=== PATIENT | female | born 1945 | race Caucasian/White ===

== ENCOUNTER 2024-11-27 16:44 | Inpatient (IN) ==
--- NOTE | 2024-11-27 17:07 | Emergency Department Note ---
Impression & Plan Stroke-like symptoms, Facial droop ED Provider Note HISTORY OF PRESENT ILLNESS: Patient is an 79-year-old female presenting with slurred speech, facial droop and right eye pain. Patient reports that 3 days ago she woke up from sleep and had some significant tearing in her right eye. Throughout the day she states that she developed some numbness and tingling in the right side of her face. Patient denies any numbness or tingling or weakness in her extremities. She is on Coumadin for history of PE use. She states that she is not having any chest pain. Denies any shortness of breath, nausea or vomiting. Denies a recent falls or head injury. States that she continues to have significant tearing and what feels like swelling of her right periorbital region and states that her right eye is very blurry. reports that today she started having significant slurred speech and he noticed that the right side of her face seem to be drooping. Patient reports she wears 2 L nasal cannula at baseline. ROS: as above PHYSICAL EXAM: Constitutional: Patient appears in no acute distress. HENT: Head: Normocephalic and atraumatic. Eyes: EOMI, PERRL Mouth/Throat: Mucous membranes moist. Neck: Trachea midline. Neck supple. Cardiovascular: RRR, No murmurs, rubs or gallops. Intact distal pulses. Pulmonary/Chest: No respiratory distress. Breath sounds clear and equal bilaterally. No wheezes or rales. No chest wall tenderness to palpation. Abdominal: Abdomen soft, no tenderness, rebound or guarding. Musculoskeletal: No edema, tenderness or deformity noted. Skin: Warm and dry. No rash, erythema, pallor or cyanosis Psychiatric: Appropriate mood and affect for situation. Neurological: Alert and keenly responsive. Patient with notable slurred speech. Right lower facial droop. Patient is able to symmetrically raise her eyebrows. Strength 5 out of 5 in bilateral upper and lower extremities. Sensation intact to light touch to the bilateral upper and lower extremities. P atient reports a decrease sensation to the right lower half of her face. MDM: - Vitals signs showed tachycardia. - History obtained via patient. History as above. - Chronic conditions affecting care: HTN; HLD; pulmonary hypertension; PEs (on Coumadin) - Differential diagnoses include, but are not limited to: CVA; Giron's palsy; intracranial hemorrhage; periorbital cellulitis - Order placed for continuous cardiac monitoring. At this time, monitor showed rate of 84 bpm with normal sinus rhythm, per my interpretation. - External medical records reviewed. - EKG image interpreted by myself showed normal sinus rhythm. Rate 98 bpm. QT 398. No acute ischemic changes. Noted, right bundle branch block. - Patient was not alerted as a stroke alert. She is outside the window TNK, given her last known well was 4 days ago as well as being on Coumadin. CT imaging does not suggest large vessel occlusion, negating the need for transfer for thrombectomy. - Laboratory workup interpreted by myself showed leukocytosis (WBC 13.05); therapeutic INR (2.3); stable electrolytes; elevated creatinine (1.5); hyperglycemia (glucose 216) with normal anion gap; normal BNP; negative lyme; negative Anaplasmosis/Babesia - CXR image reviewed by myself showed pulmonary vascular congestion, per my interpretation. Radiology notes cardiomegaly with pulmonary vascular congestion suggestive of CHF. Also noted to have diffuse hazy opacities in the lungs concerning for pulmonary edema. - CT head wo contrast negative for acute intracranial pathology - CTA head/neck negative for acute abnormality. - On reassessment, patient is still having notable right lower facial droop. She is able to symmetrically raise the eyebrows, making Giron's palsy less likely. Did discuss results with the patient. I did discuss that I am concerned about a stroke and recommended that she be admitted for further workup. - Discussion was had with returned case inspector about patient's case and need for admission - Hospitalist consulted for admission [facility] ASSESSMENT AND PLAN: Diagnosis: Strokelike symptoms; facial droop Plan: Admit Past Med/Surg History Problem List (Updated 11/27/24 @ 20:50 by Leigh Ann Beaulieu MD) Facial droop (Acute) Stroke-like symptoms (Acute) Hypertension (Chronic) Anticoagulant long-term use (Chronic) Hypercholesteremia (Chronic) Acid reflux (Chronic) Obesity (Chronic) Anxiety (Chronic) Osteoarthritis (Chronic) Abnormal EKG Acute exacerbation of CHF (congestive heart failure) Social History Smoking Status: Never smoker Feels Safe at Home: Yes Allergies Allergies Allergy/AdvReac Type Severity Reaction Status Date / Time animal dander Allergy Unknown unknown Unverified 01/08/16 17:45 cabbage Allergy Unknown unknown Unverified 01/08/16 17:45 hazelnut Allergy Unknown unknown Unverified 01/08/16 17:45 orange Allergy Unknown unknown Unverified 01/08/16 17:45 rice Allergy Unknown unknown Unverified 01/08/16 17:45 Dust Allergy Unknown congestion Uncoded 01/08/16 17:45 Home Meds Home Medications Medication Instructions Recorded Confirmed ATENOLOL (TENORMIN) 25 mg PO BID #0 tabs 04/14/12 LOSARTAN POTASSIUM (COZAAR) 50 mg PO DAILY #0 tabs 04/14/12 MONTELUKAST SODIUM (SINGULAIR) 10 mg PO DAILY #0 tabs 04/14/12 OMEPRAZOLE (PRILOSEC) 20 mg PO DAILY #0 caps 04/14/12 Cetirizine (Zyrtec) 10 mg PO DAILY #0 tabs 01/08/16 Fluticasone Propionate (Flovent 2 puff inhalation BID 30 days #1 01/08/16 Hfa) inhaler ROSUVASTATIN CALCIUM (CRESTOR) 1 tab PO DAILY 30 days #30 tabs 01/08/16 Previous Rx's Medication Instructions Recorded Amlodipine Besylate 2.5 mg PO QAM 10 days #5 tabs 01/14/16 Aspirin (Aspirin Low Strength) 81 mg PO QAM 10 days ##10 01/14/16 Colchicine (Colcrys) 0.6 mg PO QAM 10 days #10 tabs 01/14/16 Furosemide 40 mg PO QAM 10 days #10 tabs 01/14/16 Potassium Chloride (Klor-Con M20) 20 meq PO QAM 10 days ##10 01/14/16 Spironolactone 25 mg PO QAM 10 days #10 tabs 01/14/16 Results & Data (ED) Vital Signs Vital Signs - 24 hr 11/27/24 16:49 11/27/24 17:24 11/27/24 17:24 Temperature 36.9 C Temperature Source Oral Pulse Rate 96 H Pulse Rate [Apical] 94 H Pulse Rhythm [Apical] Regular Respiratory Rate 18 18 Respiratory Effort / Characteristics Non-Labored Non-Labored Spontaneous Respiratory Depth Normal Normal Respiratory Pattern Regular Regular Blood Pressure 138/78 Blood Pressure [Left Arm] 155/81 H Blood Pressure Mean 98 Blood Pressure Mean [Left Arm] 105 Blood Pressure Position [Left Arm] Sitting Pulse Oximetry 95 97 Oxygen Delivery Method Nasal Cannula Nasal Cannula Nasal Cannula Oxygen Flow Rate 2 3 3 Sepsis Recent Fever Within 48 Hours No Sepsis New/Unexplained Change in Mental Status N/A Sepsis Action Taken by Nursing No Action Required Pulse Oximetry Post Tiitration 94 11/27/24 17:24 11/27/24 17:33 11/27/24 19:00 Temperature Temperature Source Pulse Rate 93 H Pulse Rate [Apical] 84 Pulse Rhythm [Apical] Respiratory Rate 16 Respiratory Effort / Characteristics Non-Labored Spontaneous Respiratory Depth Respiratory Pattern Blood Pressure Blood Pressure [Left Arm] 160/86 H Blood Pressure Mean Blood Pressure Mean [Left Arm] 110 Blood Pressure Position [Left Arm] Pulse Oximetry 94 95 Oxygen Delivery Method Room Air Room Air Oxygen Flow Rate Sepsis Recent Fever Within 48 Hours Sepsis New/Unexplained Change in Mental Status Sepsis Action Taken by Nursing Pulse Oximetry Post Tiitration Laboratory Data 11/27/24 17:00 11/27/24 17:00 Lab Results 11/27/24 11/27/24 11/27/24 Range/Units 17:00 17:02 17:04 WBC 13.05 H (4.8-10.8) K/ul RBC 4.86 (4.20-5.40) M/uL Hgb 14.9 (12.0-16.0) g/dl POC Hgb 16.0 (12.0-16.0) g/dl Hct 44.5 (37.0-47.0) % POC Hct 47 (37-47) % MCV 91.6 (80.0-100.0) fL MCH 30.7 (25.0-34.0) pg MCHC 33.5 (32.0-36.0) g/dL RDW Std Deviation 51.2 H (36.4-46.3) fL RDW Coeff of Remedios 15.5 H (11.5-14.5) % Plt Count 227 (130-400) K/uL MPV 13.0 H (9.4-12.4) fL PT 22.8 H (9.0-12.0) Seconds INR 2.3 H (0.9-1.1) APTT 38 H (21-31) Seconds PTT Ratio 1.4 POC Sodium 142 (135-144) mmol/L Sodium 140 (136-145) mmol/L POC Potassium 3.8 (3.3-5.0) mmol/L Potassium 3.9 (3.5-5.1) mmol/L POC Chloride 104 (101-112) mmol/L Chloride 104 (98-107) mmol/L Carbon Dioxide 27 (21-32) mmol/L POC Total CO2 26 (24-31) mmol/L Anion Gap 9 (3-11) POC Anion Gap 16.0 (16-25) mmol/L POC BUN 25 H (7-18) mg/dl BUN 24 H (6-23) mg/dl Creatinine 1.50 H (0.6-1.2) mg/dl POC Creatinine 1.6 H (0.6-1.3) mg/dl Est Cr Clr Drug Dosing 33.7 ml/min eGFR 35.01 BUN/Creatinine Ratio 16.0 (10-20) Glucose 216 H (70-99(Fasting)) mg/dl POC Glucose 202 H (70-99) mg/dl POC Glucose (other) 219 H (70-99) mg/dl Calcium 9.0 (8.6-10.3) mg/dl POC Ioniz Calcium Betina 1.09 L (1.12-1.32) mmol/l Magnesium 2.4 (1.7-2.4) mg/dl Total Bilirubin 0.5 (0.2-1.0) mg/dl AST 21 (13-39) U/L ALT 20 (7-52) U/L Alkaline Phosphatase 76 (34-104) U/L B-Natriuretic Peptide 29 (0-100) pg/ml Total Protein 8.0 (6.0-8.3) gm/dl Albumin 4.1 (3.4-5.0) gm/dl Globulin 3.9 (2.5-4.0) gm/dl Albumin/Globulin Ratio 1.1 (0.9-2) Anaplasma Smear See Comment Babesia Smear See Comment Lyme Disease Screen Negative (Negative) Administered Medications Discontinued Medications Ioversol (Optiray 320 125ml) 90 ml IV ONCE ONE Stop: 11/27/24 17:11 Last Admin: 11/27/24 18:08 Dose: Not Given Documented By: ALLAN Ioversol (Optiray 320 125ml) 115 ml IV ONCE ONE Stop: 11/27/24 17:12 Last Admin: 11/27/24 17:11 Dose: 115 ml Documented By: [facility] Imaging Data Radiologist's Impression: Head CTA 11/27/24 16:55 EXAM: CTA head with CLINICAL HISTORY: Facial droop right TECHNIQUE: Contiguous CTA axial images were obtained through the head after the administration of intravenous contrast. Sagittal and coronal reformations are supplied. PRIORS: Head CT 01/08/2016 FINDINGS: The vertebral arteries form the basilar artery at the skull base. [place] is patent. No thrombus or hemodynamically significant stenosis. No aneurysmal dilatation or thomas aneurysm. Moderate calcified atherosclerotic disease involving the bilateral internal carotid arteries at the level of the cavernous sinus which are patent and opacified. Globes are bilaterally symmetric. Optic nerves, artery, extraocular muscles are symmetric. Retrobulbar fat is normal. No enhancing mass in the brain. IMPRESSION: No CTA evidence of an acute vascular abnormality. Electronically signed by Janeen Teague 11-27-2024 7:33 PM Neck CTA 11/27/24 16:55 EXAM: CT angio neck with con CLINICAL HISTORY: Right facial droop, difficulty seeing TECHNIQUE: Contiguous CTA axial images were obtained through the neck with the administration of intravenous contrast. Sagittal and coronal reformations are supplied. MIPS are supplied. COMPARISON: None FINDINGS: A left-sided aortic arch is present. Moderate atherosclerotic disease of the arch with appropriate takeoff of the great vessels and no hemodynamically significant stenosis at their origins. Venous contamination is present. Mild calcified atherosclerotic plaque present in the carotid artery bulbs and proximal internal carotid arteries. No hemodynamically significant stenosis. The common, internal and external carotid arteries are patent. Carotid arteries enter the petrous portion of the skull base normally. No stenosis, thrombus or dissection. The vertebral arteries are bilaterally symmetric and patent throughout their course. No pneumothorax in the upper lungs. No acute osseous abnormality. IMPRESSION: No CT evidence of an acute vascular abnormality in the neck. Electronically signed by Janeen Teague 11-27-2024 7:38 PM Chest X-Ray 11/27/24 16:56 HISTORY: Stroke alert. TECHNIQUE: Portable AP radiograph of the chest. COMPARISON: Chest radiograph dated 01/13/2016. FINDINGS: Cardiomegaly. Pulmonary vascular congestion. Diffuse hazy opacity throughout both lungs. Superimposed left lower lung/retrocardiac opacity. No pneumothorax or effusion. Postsurgical changes of the heart and mediastinum. Degenerative changes of the shoulders and spine. Included upper abdomen is unremarkable. IMPRESSION: * Cardiomegaly with pulmonary vascular congestion suggesting CHF. Diffuse hazy opacity throughout the lungs may represent superimposed pulmonary edema versus chronic interstitial lung disease or atypical pneumonia. * Superimposed left lower lung/retrocardiac opacity favored to represent artifact from underpenetration and atelectasis. Pneumonia is not excluded. Electronically signed by Lorenzo Sewell 11-27-2024 7:[address] 11/27/24 16:56 EXAMINATION: Head CT without CLINICAL HISTORY: Right facial droop, difficulty seeing out of right eye, started this morning. PRIORS: 01/08/2016 TECHNIQUE: Contiguous axial images were obtained through the head without the use of intravenous contrast. Sagittal and coronal reformations are supplied. FINDINGS: Significant motion artifact degrades image quality. Mild parenchymal volume loss noted. Maldonado-white differentiation is preserved. No edema or midline shift. No intra-axial or extra-axial hemorrhage. Ventricles are normal in size and configuration. Brainstem and cerebellum have a normal appearance. Calvarium unremarkable. Paranasal sinuses and mastoid air cells are well-pneumatized. Globes are intact. No retrobulbar abnormality. Moderate osseous demineralization noted. IMPRESSION: No CT evidence of an acute intracranial abnormality. Electronically signed by Janeen Teague 11-27-2024 7:33 PM Discharge Plan Visit Data Chief Complaint: TIA Symptoms Stated Complaint: RT SIDE OF FACE NUMB ED Provider: Leigh Ann Beaulieu Discharge Problem: Stroke-like symptoms, Facial droop Patient Disposition: Admitted As Inpatient Condition: Fair Forms Stand Alone Forms: [facility] Prescriptions Prescriptions: No Action ATENOLOL (TENORMIN) 25 MG tablet 25 mg PO BID Qty: 0 LOSARTAN POTASSIUM (COZAAR) 50 MG tablet 50 mg PO DAILY Qty: 0 MONTELUKAST SODIUM (SINGULAIR) 10 MG tablet 10 mg PO DAILY Qty: 0 OMEPRAZOLE (PRILOSEC) 20 MG capsule 20 mg PO DAILY Qty: 0 Cetirizine (Zyrtec) 10 MG tablet 10 mg PO DAILY Qty: 0 Fluticasone Propionate (Flovent Hfa) 120 PUFFS/13,200 MCG aerosol 2 puff Inhalation BID 30 Days Qty: 1 ROSUVASTATIN CALCIUM (CRESTOR) 20 MG tablet 1 tab PO DAILY 30 Days Qty: 30 Amlodipine Besylate 5 MG tablet 2.5 mg PO QAM 10 Days Qty: 5 0RF Aspirin (Aspirin Low Strength) 81 MG CHEWABLE TAB 81 mg PO QAM 10 Days Qty: 10 0RF Colchicine (Colcrys) 0.6 MG tablet 0.6 mg PO QAM 10 Days Qty: 10 0RF Furosemide 40 MG tablet 40 mg PO QAM 10 Days Qty: 10 0RF Potassium Chloride (Klor-Con M20) 20 MEQ [id number] 20 meq PO QAM 10 Days Qty: 10 0RF Spironolactone 25 MG tablet 25 mg PO QAM 10 Days Qty: 10 0RF Referrals Referrals: Dallas Thompson [Outside Practitioners] -
[2024-11-27] MEDS: OPTIRAY 320 125ml IV ONE ×2 (17:11→18:08)
[2024-11-27 17:15] LABS: iSTAT Creatinine 1.6 mg/dl (0.6-1.3); iSTAT Ionized Calcium 1.09 mmol/l (1.12-1.32); iSTAT Potassium 3.8 mmol/L (3.3-5.0)
[2024-11-27 17:18] LABS: Hematocrit (blood only) 44.5 % (37.0-47.0); Hemoglobin 14.9 g/dl (12.0-16.0); Mean Corpuscular Hemoglobin 30.7 pg (25.0-34.0); Mean Corpuscular Hgb Conc 33.5 g/dL (32.0-36.0); Mean Corpuscular Volume 91.6 fL (80.0-100.0); Platelet Count 227 K/uL (130-400); RDW Coefficient of Variation 15.5 % (11.5-14.5); RDW Standard Deviation 51.2 fL (36.4-46.3); Red Blood Count 4.86 M/uL (4.20-5.40); White Blood Count 13.05 K/ul (4.8-10.8)
[2024-11-27 17:34] LABS: Albumin Globulin Ratio 1.1 (0.9-2); Bilirubin,Total 0.5 mg/dl (0.2-1.0); Creatinine Clr Calc Pharmacy 33.7 ml/min; Globulin 3.9 gm/dl (2.5-4.0); Magnesium 2.4 mg/dl (1.7-2.4); Potassium 3.9 mmol/L (3.5-5.1)
[2024-11-27 17:48] LABS: INR 2.3 (0.9-1.1); Partial Thromboplastin Ratio 1.4; Partial Thromboplastin Time 38 Seconds (21-31); Prothrombin Time 22.8 Seconds (9.0-12.0)
--- NOTE | 2024-11-27 19:33 | CT Scan Report ---
EXAMINATION: Head CT without CLINICAL HISTORY: Right facial droop, difficulty seeing out of right eye, started this morning. PRIORS: 01/08/2016 TECHNIQUE: Contiguous axial images were obtained through the head without the use of intravenous contrast. Sagittal and coronal reformations are supplied. FINDINGS: Significant motion artifact degrades image quality. Mild parenchymal volume loss noted. Maldonado-white differentiation is preserved. No edema or midline shift. No intra-axial or extra-axial hemorrhage. Ventricles are normal in size and configuration. Brainstem and cerebellum have a normal appearance. Calvarium unremarkable. Paranasal sinuses and mastoid air cells are well-pneumatized. Globes are intact. No retrobulbar abnormality. Moderate osseous demineralization noted. IMPRESSION: No CT evidence of an acute intracranial abnormality. Electronically signed by Janeen Teague 11-27-2024 7:33 PM
--- NOTE | 2024-11-27 19:33 | CT Scan Report ---
EXAM: CTA head with CLINICAL HISTORY: Facial droop right TECHNIQUE: Contiguous CTA axial images were obtained through the head after the administration of intravenous contrast. Sagittal and coronal reformations are supplied. PRIORS: Head CT 01/08/2016 FINDINGS: The vertebral arteries form the basilar artery at the skull base. [place] of [place] is patent. No thrombus or hemodynamically significant stenosis. No aneurysmal dilatation or thomas aneurysm. Moderate calcified atherosclerotic disease involving the bilateral internal carotid arteries at the level of the cavernous sinus which are patent and opacified. Globes are bilaterally symmetric. Optic nerves, artery, extraocular muscles are symmetric. Retrobulbar fat is normal. No enhancing mass in the brain. IMPRESSION: No CTA evidence of an acute vascular abnormality. Electronically signed by Janeen Teague 11-27-2024 7:33 PM
--- NOTE | 2024-11-27 19:38 | XRay Report ---
HISTORY: Stroke alert. TECHNIQUE: Portable AP radiograph of the chest. COMPARISON: Chest radiograph dated 01/13/2016. FINDINGS: Cardiomegaly. Pulmonary vascular congestion. Diffuse hazy opacity throughout both lungs. Superimposed left lower lung/retrocardiac opacity. No pneumothorax or effusion. Postsurgical changes of the heart and mediastinum. Degenerative changes of the shoulders and spine. Included upper abdomen is unremarkable. IMPRESSION: * Cardiomegaly with pulmonary vascular congestion suggesting CHF. Diffuse hazy opacity throughout the lungs may represent superimposed pulmonary edema versus chronic interstitial lung disease or atypical pneumonia. * Superimposed left lower lung/retrocardiac opacity favored to represent artifact from underpenetration and atelectasis. Pneumonia is not excluded. Electronically signed by Lorenzo Sewell 11-27-2024 7:37 PM
--- NOTE | 2024-11-27 19:39 | CT Scan Report ---
EXAM: CT angio neck with con CLINICAL HISTORY: Right facial droop, difficulty seeing TECHNIQUE: Contiguous CTA axial images were obtained through the neck with the administration of intravenous contrast. Sagittal and coronal reformations are supplied. MIPS are supplied. COMPARISON: None FINDINGS: A left-sided aortic arch is present. Moderate atherosclerotic disease of the arch with appropriate takeoff of the great vessels and no hemodynamically significant stenosis at their origins. Venous contamination is present. Mild calcified atherosclerotic plaque present in the carotid artery bulbs and proximal internal carotid arteries. No hemodynamically significant stenosis. The common, internal and external carotid arteries are patent. Carotid arteries enter the petrous portion of the skull base normally. No stenosis, thrombus or dissection. The vertebral arteries are bilaterally symmetric and patent throughout their course. No pneumothorax in the upper lungs. No acute osseous abnormality. IMPRESSION: No CT evidence of an acute vascular abnormality in the neck. Electronically signed by Janeen Teague 11-27-2024 7:38 PM
--- NOTE | 2024-11-27 21:06 | History & Physical Report ---
Date of Service November 27, 2024 Assessment & Plan (1) Stroke-like symptoms: Plan: Patient presents with right facial numbness and right facial droop along with right eye symptoms. CTA of the brain and neck showed no significant vascular abnormalities CTA of the brain shows no acute abnormalities Continue warfarin and aspirin for now Consult neurology Will obtain MRI of the brain Will check echocardiogram Consult PT and OT and speech therapy Consult neurology (2) Hypertension: Plan: Will continue her home medications Monitor her BP Allow for permissive hypertension if stroke is confirmed (3) Pulmonary embolism: Plan: Continue warfarin Consult pharmacy for dosing management (4) Hypercholesteremia: Plan: Continue rosuvastatin (5) Acid reflux: Plan: Continue PPI (6) Pulmonary arterial hypertension: Plan: Continue Adempas (7) Diabetes 1.5, managed as type 2: Plan: Heart healthy carb counting diet Will hold Ozempic and glipizide for now Continue Jardiance Sliding scale insulin (8) Chronic respiratory failure: Plan: Continue O2 continuous at 2 L/min Plan Discussed CODE STATUS with the patient and her . She is a full code Continue warfarin A total of 87 minutes spent in the care, care plan and care management for this patient History of Present Illness Chief Complaint: Stroke symptoms Primary Care Provider: Félix Villeda MD Gabbi Castaneda is an 79-year-old female with a previous medical history significant for type 2 diabetes mellitus prior pulmonary embolism, paroxysmal atrial fibrillation on chronic warfarin anticoagulation, GERD, adjustment diso rder with depressed mood, hypertension, restrictive lung disease, pulmonary hypertension, hyperlipidemia and stage III CKD. She presents to the ED this evening with her spouse with slurred speech, facial droop and right eye pain. She reports that 3 days ago she woke up from sleep and had some significant tearing in her right eye. Throughout the day she states that she developed some numbness and tingling in the right side of her face. She denies any numbness or tingling or weakness in her extremities. She denies chest pain, shortness of breath, fever, chills or headache currently. She denies any recent falls or head injury. She states that she continues to have significant tearing and what feels like swelling of her right periorbital region and states that her right eye is very blurry. Her spouse reports that today she started having significant slurred speech and he noticed that the right side of her face seemed to be drooping. Patient wears 2 L nasal cannula at baseline for restrictive lung disease and pulmonary hypertension. In the ED CTA of the neck and head are negative for significant vascular occlusion. CT scan of the head shows no acute abnormalities. Patient is outside the window for TNK. Gabbi states she felt as though she had a sinus infection several weeks ago. She did finish her course of amoxicillin. She has no sinus pressure or purulent nasal discharge. Allergies Allergy/AdvReac Type Severity Reaction Status Date / Time animal dander Allergy Unknown unknown Unverified 01/08/16 17:45 cabbage Allergy Unknown unknown Unverified 01/08/16 17:45 hazelnut Allergy Unknown unknown Unverified 01/08/16 17:45 orange Allergy Unknown unknown Unverified 01/08/16 17:45 rice Allergy Unknown unknown Unverified 01/08/16 17:45 Dust Allergy Unknown congestion Uncoded 01/08/16 17:45 Home Medications Medication Instructions Recorded Confirmed Type ATENOLOL (TENORMIN) 25 mg PO BID #0 tabs 04/14/12 History LOSARTAN POTASSIUM (COZAAR) 50 mg PO DAILY #0 tabs 04/14/12 History MONTELUKAST SODIUM (SINGULAIR) 10 mg PO DAILY #0 tabs 04/14/12 History OMEPRAZOLE (PRILOSEC) 20 mg PO DAILY #0 caps 04/14/12 History Cetirizine (Zyrtec) 10 mg PO DAILY #0 tabs 01/08/16 History Fluticasone Propionate (Flovent 2 puff inhalation BID 30 days #1 01/08/16 History Hfa) inhaler ROSUVASTATIN CALCIUM (CRESTOR) 1 tab PO DAILY 30 days #30 tabs 01/08/16 History Amlodipine Besylate 2.5 mg PO QAM 10 days #5 tabs 01/14/16 Rx Aspirin (Aspirin Low Strength) 81 mg PO QAM 10 days ##10 01/14/16 Rx Colchicine (Colcrys) 0.6 mg PO QAM 10 days #10 tabs 01/14/16 Rx Furosemide 40 mg PO QAM 10 days #10 tabs 01/14/16 Rx Potassium Chloride (Klor-Con M20) 20 meq PO QAM 10 days ##10 01/14/16 Rx Spironolactone 25 mg PO QAM 10 days #10 tabs 01/14/16 Rx Past Med/Surg History Problem List (Updated 11/27/24 @ 21:49 by Lorenzo Molina DO) Chronic respiratory failure Diabetes 1.5, managed as type 2 Pulmonary arterial hypertension Facial droop (Acute) Stroke-like symptoms (Acute) Hypertension (Chronic) Anticoagulant long-term use (Chronic) Hypercholesteremia (Chronic) Acid reflux (Chronic) Obesity (Chronic) Anxiety (Chronic) Osteoarthritis (Chronic) Abnormal EKG Acute exacerbation of CHF (congestive heart failure) Social History Smoking Status: Never smoker Feels Safe at Home: Yes Review of Systems Review of Systems: Constitutional- no fever; no weight loss even on the Ozempic yet Eyes-as above. She states both eyes are blurry but that is not really new ENT-occasional sinus drainage; no pharyngitis Pulmonary-she did have a cough several weeks ago but no cough currently, no wheezing, no resting shortness of breath. She has chronic dyspnea on exertion and is on 2 L of oxygen via nasal cannula continuous Cardiac- no chest pain, no palpitations, no orthopnea, no current edema GI- no nausea, no vomiting, no diarrhea, no melena, no hematochezia - no dysuria, no hematuria Musculoskeletal- no arthralgias, no myalgias, she does have chronic low back pain and is mainly wheelchair bound most of the time Hematologic- no unusual bruising, no unusual bleeding on the warfarin Lymphatics- no adenopathy Neuro- no headaches, she has a right facial droop, no paresthesias or weakness in the right upper extremity or right lower extremity. She did have some facial numbness on the right but that seems to have resolved. Psych-she has a history of anxiety with depression that is currently controlled Physical Exam Physical Exam: General- adult elderly female seen at bedside, her spouse is present, she is deemed a reliable historian Head- atraumatic Eyes- PERRL, EOMI, anicteric ENT- oropharynx clear Neck- supple, no JVD, no adenopathy, no thyromegaly; carotids +2/2, no bruits appreciated Lungs- clear to auscultation and percussion Heart- regular rhythm; no gallop, no rub appreciated Abdomen- normal bowel sounds, soft, nontender, no masses or hepatosplenomegaly Extremities- no pretibial edema, no calf tenderness; peripheral pulses intact Neuro- alert, oriented x 3; PERRL, EOMI; she does have a subtle right facial droop; she does move her eyebrows symmetrically, no dysarthria; motor 5/5 bilaterally; no cogwheel rigidity; patellar DTRs +2/2; toes downgoing bilaterally; finger to nose intact bilaterally Skin- warm & dry Results & Data Results & Data Vital Signs (Past 12 Hours) Vital Signs Temp Pulse Pulse Resp BP BP Pulse Ox 11/27/24 19:00 84 16 160/86 H 95 11/27/24 17:33 93 H 11/27/24 17:24 94 11/27/24 17:24 11/27/24 17:24 94 H 18 155/81 H 97 11/27/24 16:49 36.9 C 96 H 18 138/78 95 O2 Del Method O2 Flow Rate 11/27/24 19:00 Room Air 11/27/24 17:33 11/27/24 17:24 Room Air 11/27/24 17:24 Nasal Cannula 3 11/27/24 17:24 Nasal Cannula 3 11/27/24 16:49 Nasal Cannula 2 Diagnostic Findings Laboratory Results WBC 13.05 K/ul (4.8-10.8) H 11/27/24 17:00 RBC 4.86 M/uL (4.20-5.40) 11/27/24 17:00 Hgb 14.9 g/dl (12.0-16.0) 11/27/24 17:00 POC Hgb 16.0 g/dl (12.0-16.0) 11/27/24 17:04 Hct 44.5 % (37.0-47.0) 11/27/24 17:00 POC Hct 47 % (37-47) 11/27/24 17:04 MCV 91.6 fL (80.0-100.0) 11/27/24 17:00 MCH 30.7 pg (25.0-34.0) 11/27/24 17:00 MCHC 33.5 g/dL (32.0-36.0) 11/27/24 17:00 RDW Std Deviation 51.2 fL (36.4-46.3) H 11/27/24 17:00 RDW Coeff of Remedios 15.5 % (11.5-14.5) H 11/27/24 17:00 Plt Count 227 K/uL (130-400) 11/27/24 17:00 MPV 13.0 fL (9.4-12.4) H 11/27/24 17:00 PT 22.8 Seconds (9.0-12.0) H 11/27/24 17:00 INR 2.3 (0.9-1.1) H 11/27/24 17:00 APTT 38 Seconds (21-31) H 11/27/24 17:00 PTT Ratio 1.4 11/27/24 17:00 POC Sodium 142 mmol/L (135-144) 11/27/24 17:04 Sodium 140 mmol/L (136-145) 11/27/24 17:00 POC Potassium 3.8 mmol/L (3.3-5.0) 11/27/24 17:04 Potassium 3.9 mmol/L (3.5-5.1) 11/27/24 17:00 POC Chloride 104 mmol/L (101-112) 11/27/24 17:04 Chloride 104 mmol/L (98-107) 11/27/24 17:00 Carbon Dioxide 27 mmol/L (21-32) 11/27/24 17:00 POC Total CO2 26 mmol/L (24-31) 11/27/24 17:04 Anion Gap 9 (3-11) 11/27/24 17:00 POC Anion Gap 16.0 mmol/L (16-25) 11/27/24 17:04 POC BUN 25 mg/dl (7-18) H 11/27/24 17:04 BUN 24 mg/dl (6-23) H 11/27/24 17:00 Creatinine 1.50 mg/dl (0.6-1.2) H 11/27/24 17:00 POC Creatinine 1.6 mg/dl (0.6-1.3) H 11/27/24 17:04 Est Cr Clr Drug Dosing 33.7 ml/min 11/27/24 17:00 eGFR 35.01 11/27/24 17:00 BUN/Creatinine Ratio 16.0 (10-20) 11/27/24 17:00 Glucose 216 mg/dl (70-99(Fasting)) H 11/27/24 17:00 POC Glucose 202 mg/dl (70-99) H 11/27/24 17:02 POC Glucose (other) 219 mg/dl (70-99) H 11/27/24 17:04 Calcium 9.0 mg/dl (8.6-10.3) 11/27/24 17:00 POC Ioniz Calcium Betina 1.09 mmol/l (1.12-1.32) L 11/27/24 17:04 Magnesium 2.4 mg/dl (1.7-2.4) 11/27/24 17:00 Total Bilirubin 0.5 mg/dl (0.2-1.0) 11/27/24 17:00 AST 21 U/L (13-39) 11/27/24 17:00 ALT 20 U/L (7-52) 11/27/24 17:00 Alkaline Phosphatase 76 U/L (34-104) 11/27/24 17:00 B-Natriuretic Peptide 29 pg/ml (0-100) 11/27/24 17:00 Total Protein 8.0 gm/dl (6.0-8.3) 11/27/24 17:00 Albumin 4.1 gm/dl (3.4-5.0) 11/27/24 17:00 Globulin 3.9 gm/dl (2.5-4.0) 11/27/24 17:00 Albumin/Globulin Ratio 1.1 (0.9-2) 11/27/24 17:00 Anaplasma Smear See Comment 11/27/24 17:00 Babesia Smear See Comment 11/27/24 17:00 Lyme Disease Screen Negative (Negative) 11/27/24 17:00 Impressions Head CTA 11/27/24 16:55 EXAM: CTA head with CLINICAL HISTORY: Facial droop right TECHNIQUE: Contiguous CTA axial images were obtained through the head after the administration of intravenous contrast. Sagittal and coronal reformations are supplied. PRIORS: Head CT 01/08/2016 FINDINGS: The vertebral arteries form the basilar artery at the skull base. [place] of [place] is patent. No thrombus or hemodynamically significant stenosis. No aneurysmal dilatation or thomas aneurysm. Moderate calcified atherosclerotic disease involving the bilateral internal carotid arteries at the level of the cavernous sinus which are patent and opacified. Globes are bilaterally symmetric. Optic nerves, artery, extraocular muscles are symmetric. Retrobulbar fat is normal. No enhancing mass in the brain. IMPRESSION: No CTA evidence of an acute vascular abnormality. Electronically signed by Janeen Teague 11-27-2024 7:33 PM Neck CTA 11/27/24 16:55 EXAM: CT angio neck with con CLINICAL HISTORY: Right facial droop, difficulty seeing TECHNIQUE: Contiguous CTA axial images were obtained through the neck with the administration of intravenous contrast. Sagittal and coronal reformations are supplied. MIPS are supplied. COMPARISON: None FINDINGS: A left-sided aortic arch is present. Moderate atherosclerotic disease of the arch with appropriate takeoff of the great vessels and no hemodynamically significant stenosis at their origins. Venous contamination is present. Mild calcified atherosclerotic plaque present in the carotid artery bulbs and proximal internal carotid arteries. No hemodynamically significant stenosis. The common, internal and external carotid arteries are patent. Carotid arteries enter the petrous portion of the skull base normally. No stenosis, thrombus or dissection. The vertebral arteries are bilaterally symmetric and patent throughout their course. No pneumothorax in the upper lungs. No acute osseous abnormality. IMPRESSION: No CT evidence of an acute vascular abnormality in the neck. Electronically signed by Janeen Teague 11-27-2024 7:38 PM Chest X-Ray 11/27/24 16:56 HISTORY: Stroke alert. TECHNIQUE: Portable AP radiograph of the chest. COMPARISON: Chest radiograph dated 01/13/2016. FINDINGS: Cardiomegaly. Pulmonary vascular congestion. Diffuse hazy opacity throughout both lungs. Superimposed left lower lung/retrocardiac opacity. No pneumothorax or effusion. Postsurgical changes of the heart and mediastinum. Degenerative changes of the shoulders and spine. Included upper abdomen is unremarkable. IMPRESSION: * Cardiomegaly with pulmonary vascular congestion suggesting CHF. Diffuse hazy opacity throughout the lungs may represent superimposed pulmonary edema versus chronic interstitial lung disease or atypical pneumonia. * Superimposed left lower lung/retrocardiac opacity favored to represent artifact from underpenetration and atelectasis. Pneumonia is not excluded. Electronically signed by Lorenzo Sewell 11-27-2024 7:[address] 11/27/24 16:56 EXAMINATION: Head CT without CLINICAL HISTORY: Right facial droop, difficulty seeing out of right eye, started this morning. PRIORS: 01/08/2016 TECHNIQUE: Contiguous axial images were obtained through the head without the use of intravenous contrast. Sagittal and coronal reformations are supplied. FINDINGS: Significant motion artifact degrades image quality. Mild parenchymal volume loss noted. Maldonado-white differentiation is preserved. No edema or midline shift. No intra-axial or extra-axial hemorrhage. Ventricles are normal in size and configuration. Brainstem and cerebellum have a normal appearance. Calvarium unremarkable. Paranasal sinuses and mastoid air cells are well-pneumatized. Globes are intact. No retrobulbar abnormality. Moderate osseous demineralization noted. IMPRESSION: No CT evidence of an acute intracranial abnormality. Electronically signed by Janeen Teague 11-27-2024 7:33 PM ECG Additional Comments: EKG is reviewed and shows a sinus rhythm and a right bundle branch block. This is stated as new but this is listed on her [facility] PCP medical records. Code Status & VTE Plan VTE Prophylaxis Plan Reason for no VTE drug order: Contraindicated
[2024-11-27] MEDS: LORazepam 2 MG/1 ML VIAL IV STA (23:57)
[2024-11-27] MEDS ORDERED: LORazepam 0.5 MG TAB PO PRN (23:58)
[2024-11-28] MEDS ORDERED: POLYETHYLENE (MIRALAX) 17 GM PACK PO PRN (01:16)
[2024-11-28] MEDS ORDERED: GLUCOSE 10 TAB/TUBE PO PRN (01:16)
[2024-11-28] MEDS ORDERED: MAGNESIUM HYDROXIDE SUSP 30 ML UDC PO PRN (01:16)
[2024-11-28] MEDS ORDERED: ACETAMINOPHEN 325 MG TAB PO PRN (01:16)
[2024-11-28] MEDS ORDERED: CARBOHYDRATES FOR HYPOGLYCEMIA PO PRN (01:16)
[2024-11-28] MEDS ORDERED: GLUCAGON FOR INJ 1 MG VIAL SQ PRN (01:16)
[2024-11-28] MEDS ORDERED: MELATONIN 3 MG TAB PO PRN (01:16)
[2024-11-28] MEDS ORDERED: ONDANSETRON INJ 2 MG/ML 2 ML VIAL IV PRN (01:16)
[2024-11-28] MEDS ORDERED: DEXTROSE 50% 50 ML SYRINGE IV PRN (01:16)
[2024-11-28] MEDS ORDERED: GLUCOSE 40% GEL 15 GM TUBE PO PRN (01:16)
[2024-11-28] MEDS ORDERED: PHARMACY GLYCEMIC MGMT CONSULT PRN (01:16)
--- NOTE | 2024-11-28 01:26 | Magnetic Resonance Report ---
EXAM: MR brain wo con CLINICAL HISTORY: stroke like symptoms TECHNIQUE: Multisequential and multiplanar images of the brain were submitted for review without contrast. COMPARISON: None. FINDINGS: Generalized parenchymal atrophy is appreciated. Scattered foci of increased T2/FLAIR signal abnormality are identified within the bilateral periventricular and subcortical white matter, and are most commonly associated with chronic small vessel ischemic disease. No focal parenchymal lesions are seen. No intracranial hemorrhage, mass effect, midline shift, extra-axial collection, or hydrocephalus is identified. Ventricles, sulci, and basal cisterns are symmetric and normal in size and configuration. Diffusion-weighted sequences show no evidence of acute ischemic infarction. Midline structures including the pituitary gland, corpus callosum, pineal region, and brainstem are unremarkable. The craniovertebral junction is within normal limits. No calvarial abnormalities are identified. The paranasal sinuses and mastoid air cells are clear. Orbital structures are unremarkable. Appropriate flow voids are present in the visualized intracranial vessels. IMPRESSION: 1. No acute ischemia, space occupying mass, or other acute intracranial pathology is demonstrated. 2. Chronic small vessel ischemic disease. 3. Diffuse cerebral atrophy. Electronically signed by Phill Earl 11-28-2024 01:26 AM
[2024-11-28 02:12] LABS: Chol HDL Ratio 2.8 (0-5)
[2024-11-28 02:25] LABS: INR 2.3 (0.9-1.1); Prothrombin Time 22.8 Seconds (9.0-12.0)
[2024-11-28 06:19] LABS: Hematocrit (blood only) 42.4 % (37.0-47.0); Hemoglobin 13.5 g/dl (12.0-16.0); Mean Corpuscular Hemoglobin 29.7 pg (25.0-34.0); Mean Corpuscular Hgb Conc 31.8 g/dL (32.0-36.0); Mean Corpuscular Volume 93.4 fL (80.0-100.0); Mean Platelet Volume 13.5 fL (9.4-12.4); Platelet Count 204 K/uL (130-400); RDW Coefficient of Variation 15.6 % (11.5-14.5); RDW Standard Deviation 53.4 fL (36.4-46.3); Red Blood Count 4.54 M/uL (4.20-5.40); White Blood Count 9.67 K/ul (4.8-10.8)
[2024-11-28 06:32] LABS: BUN Creatinine Ratio 16.9 (10-20); Calcium 8.6 mg/dl (8.6-10.3); Creatinine Clr Calc Pharmacy 38.5 ml/min; Magnesium 2.5 mg/dl (1.7-2.4)
[2024-11-28 06:43] LABS: INR 2.2 (0.9-1.1); Prothrombin Time 22.6 Seconds (9.0-12.0)
[2024-11-28] MEDS: INSULIN ASPART PER UNIT CHARGE SC SCH (08:26)
[2024-11-28] MEDS: SPIRONOLACTONE 25 MG TAB PO SCH (08:27)
[2024-11-28] MEDS: ROSUVASTATIN CALCIUM 20 MG TAB PO SCH (08:27)
[2024-11-28] MEDS: allopurinoL 100 MG TAB PO SCH (08:27)
[2024-11-28] MEDS: BUMETANIDE 1 MG TAB PO SCH (08:28)
[2024-11-28] MEDS: PANTOprazole 40 MG TAB PO SCH (08:28)
[2024-11-28] MEDS: ESCITALOPRAM OXALATE 10 MG TAB PO SCH (08:28)
[2024-11-28] MEDS: ASPIRIN 81 MG ECTAB PO SCH (08:28)
--- NOTE | 2024-11-28 10:37 | Neurology Consultation ---
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: *House Brackmann III Recommend continued eye drops/lubrication QID while awake Recommend patch to cover protect right eye QHS and when engaging in activity or going outside Consider short dose of steroids to contribute to reduction in inflammation suspected following URI symptoms Consider further tx of recent/ongoing URI symptoms Agree with continued home medications Continue to monitor neurological assessments while inpatient Monitor telemetry while inpatient Monitor/control blood pressure/blood glucose while inpatient Recommend PT/OT/SLT eval & tx if indicated VTE prophylaxis if not fully anticoagulated (2) Stroke-like symptoms: [place] Palsy Telehealth Consultation Telehealth Information Telehealth Information: I performed this visit using a real-time telehealth connection between my location and the patients location (). After connecting through interactive tele-video, patient was identified by name and date of and/or wristband check.Patient (or authorized healthcare quality assurance representative) was informed that this was a telemedicine visit and it was being conducted confidentially over secure lines. My office door was closed and no one else was present in the room with me.Patient (or authorized healthcare quality assurance representative) provided consent to proceed with the visit, expressed an understanding of privacy and security of the telemedicine visit, and gave permission to have a hospital quality assurance representative in the room in order to assist with the visit and to conduct portions of the visit, as needed. I informed the patient (or authorized healthcare quality assurance representative) that I reviewed their record and presented the opportunity for them to ask any questions regarding the visit today. The patient agreed to participate. History of Present Illness Reason for Consultation: Stroke like symptoms Requesting Physician: Dr. Sanchez Attending Physician: Darek Sanchez, History of Present Illness 79yo female with hx of AFIB/PE on warfarin, DM, HTN, hyperlipidemia, CKD presented with dysarthria right facial asymmetry and right eye tearing. Reportedly awoke from sleep with new symptoms a few days prior to presentation. She has undergone stroke imaging including CT brain without contrast, personally reviewed, revealing no overt evidence of hemorrhage. CT angiographic studies of head and neck, also personally reviewed today, reveal no overt evidence of large vessel occlusion or significant/flow limiting stenosis. MRI brain depicting no evidence of acute ischemic stroke or acute intracranial pathology. I have performed televideo consultation. She is alert & oriented; able to answer all questions appropriately, name objects on televideo monitor, repeat phrases and perform complex/embedded commands without deficit. There is noted right facial asymmetry consistent with right CN VII LMN Palsy; House Brackmann III. Neurologi adela exam is non lateralizing/nonfocal in terms of motor strength and coordination. She reports recent URI and has taken antibx for 10 days. She reports chronic dry eyes. We have discussed recommendation for continued frequent eye drops QID while awake and eye lubricant to right eye QHS as well as patching protecting right eye QHS and when going outside or engaging in activity. Allergies Allergy/AdvReac Type Severity Reaction Status Date / Time animal dander Allergy Unknown unknown Unverified 01/08/16 17:45 cabbage Allergy Unknown unknown Unverified 01/08/16 17:45 hazelnut Allergy Unknown unknown Unverified 01/08/16 17:45 orange Allergy Unknown unknown Unverified 01/08/16 17:45 rice Allergy Unknown unknown Unverified 01/08/16 17:45 Home Medications Medication Instructions Recorded Confirmed Type omeprazole 20 mg capsule,delayed 20 mg PO UD #0 caps 04/14/12 11/28/24 History release cetirizine 10 mg tablet 10 mg PO UD #0 tabs 01/08/16 11/28/24 History Aspirin (Aspirin Low Strength) 81 mg PO QAM 10 days ##10 01/14/16 11/28/24 Rx allopurinol 100 mg tablet 200 mg PO DAILY 11/28/24 11/28/24 History bumetanide 1 mg tablet 1 - 2 mg PO UD 11/28/24 11/28/24 History empagliflozin 25 mg tablet 25 mg PO DAILY 11/28/24 11/28/24 History (Jardiance) glipizide 10 mg tablet 10 mg PO BID 11/28/24 11/28/24 History riociguat 2.5 mg tablet (Adempas) 2.5 mg PO DAILY 11/28/24 11/28/24 History rosuvastatin 20 mg tablet 20 mg PO DAILY 11/28/24 11/28/24 History semaglutide 0.25 mg or 0.5 mg (2 0.25 - 0.5 mg subcut DIRECTED 11/28/24 11/28/24 History mg/3 mL) subcutaneous pen injector (Ozempic) spironolactone 25 mg tablet 25 mg PO DAILY 11/28/24 11/28/24 History warfarin 1 mg tablet 1 - 2 mg PO UD 11/28/24 11/28/24 History Patient History Social History Smoking Status: Never smoker Hx Alcohol Use: No Hx Substance Use: No Preferred Language: Indonesian Communication Ability: Effective Online Media Director Required: No Beliefs That Will Affect Care: None Current Living Situation: Spouse Feels Safe at Home: Yes Safety Concerns: Feels Safe At This Time Assistive Devices: Cane, Denture - Upper, Denture - Lower, Hearing Aid - Bilateral and Oxygen - Continuous Physical Exam Neurological Examination: Mental Status: Awake and alert. Oriented to person, place, and time. Fluency naming repetition and comprehension appear grossly intact. Affect remains appropriate. CN testing: I: Deferred II:Reports no changes in visual acuity III/IV/: No evidence of gaze preference, hippus, nystagmus or roving eye movements V: Facial sensation reportedly grossly intact to light touch bilaterally VII: Appreciate right CN VII LMN palsy *House Brackmann III VIII: Hearing appears grossly intact to loud voice bilaterally IX/X: Palate-unable to be accurately assessed XI: Shoulder shrug appears symmetric/ grossly intact bilaterally XII: Tongue protrudes midline without evidence of biting Motor exam: Strength appears grossly intact/symmetric in all extremities Sensory: Sensation is reportedly grossly intact throughout Coordination: No apparent evidence of dysmetria or dysdiadochokinesia Reflexes: Deferred Gait: Deferred Results & Data Vital Signs (Past 12 Hours) Vital Signs Temp Pulse Pulse Resp BP BP Pulse Ox 11/28/24 08:30 11/28/24 07:25 36.3 C L 81 17 119/74 98 11/28/24 07:00 80 11/28/24 06:17 83 11/28/24 03:28 36.4 C L 98 H 20 146/87 H 96 11/28/24 01:28 36.5 C 85 20 122/75 97 11/28/24 01:00 11/27/24 23:56 82 18 151/83 H 94 11/27/24 23:22 36.6 C 81 18 154/82 H 93 O2 Del Method O2 Flow Rate 11/28/24 08:30 Nasal Cannula 3 11/28/24 07:25 Nasal Cannula 4 11/28/24 07:00 11/28/24 06:17 11/28/24 03:28 Nasal Cannula 4.0 11/28/24 01:28 Nasal Cannula 3.0 11/28/24 01:00 Nasal Cannula 3 11/27/24 23:56 Nasal Cannula 3 11/27/24 23:22 Nasal Cannula 3 Laboratory Results Abnormal lab results 11/27/24 11/27/24 11/27/24 Range/Units 17:00 17:02 17:04 WBC 13.05 H (4.8-10.8) K/ul MCHC (32.0-36.0) g/dL RDW Std Deviation 51.2 H (36.4-46.3) fL RDW Coeff of Remedios 15.5 H (11.5-14.5) % MPV 13.0 H (9.4-12.4) fL PT 22.8 H (9.0-12.0) Seconds INR 2.3 H (0.9-1.1) APTT 38 H (21-31) Seconds POC BUN 25 H (7-18) mg/dl BUN 24 H (6-23) mg/dl Creatinine 1.50 H (0.6-1.2) mg/dl POC Creatinine 1.6 H (0.6-1.3) mg/dl Glucose 216 H (70-99(Fasting)) mg/dl POC Glucose 202 H (70-99) mg/dl POC Glucose (other) 219 H (70-99) mg/dl POC Ioniz Calcium Betina 1.09 L (1.12-1.32) mmol/l Magnesium (1.7-2.4) mg/dl 11/28/24 11/28/24 11/28/24 Range/Units 01:21 01:32 05:22 WBC (4.8-10.8) K/ul MCHC 31.8 L (32.0-36.0) g/dL RDW Std Deviation 53.4 H (36.4-46.3) fL RDW Coeff of Remedios 15.6 H (11.5-14.5) % MPV 13.5 H (9.4-12.4) fL PT 22.8 H 22.6 H (9.0-12.0) Seconds INR 2.3 H 2.2 H (0.9-1.1) APTT (21-31) Seconds POC BUN (7-18) mg/dl BUN (6-23) mg/dl Creatinine 1.30 H (0.6-1.2) mg/dl POC Creatinine (0.6-1.3) mg/dl Glucose 134 H (70-99(Fasting)) mg/dl POC Glucose 155 H (70-99) mg/dl POC Glucose (other) (70-99) mg/dl POC Ioniz Calcium Betina (1.12-1.32) mmol/l Magnesium 2.5 H (1.7-2.4) mg/dl 11/28/24 Range/Units 07:24 WBC (4.8-10.8) K/ul MCHC (32.0-36.0) g/dL RDW Std Deviation (36.4-46.3) fL RDW Coeff of Remedios (11.5-14.5) % MPV (9.4-12.4) fL PT (9.0-12.0) Seconds INR (0.9-1.1) APTT (21-31) Seconds POC BUN (7-18) mg/dl BUN (6-23) mg/dl Creatinine (0.6-1.2) mg/dl POC Creatinine (0.6-1.3) mg/dl Glucose (70-99(Fasting)) mg/dl POC Glucose 115 H (70-99) mg/dl POC Glucose (other) (70-99) mg/dl POC Ioniz Calcium Betina (1.12-1.32) mmol/l Magnesium (1.7-2.4) mg/dl Diagnostic Findings Head CTA 11/27/24 16:55 EXAM: CTA head with CLINICAL HISTORY: Facial droop right TECHNIQUE: Contiguous CTA axial images were obtained through the head after the administration of intravenous contrast. Sagittal and coronal reformations are supplied. PRIORS: Head CT 01/08/2016 FINDINGS: The vertebral arteries form the basilar artery at the skull base. [place] is patent. No thrombus or hemodynamically significant stenosis. No aneurysmal dilatation or thomas aneurysm. Moderate calcified atherosclerotic disease involving the bilateral internal carotid arteries at the level of the cavernous sinus which are patent and opacified. Globes are bilaterally symmetric. Optic nerves, artery, extraocular muscles are symmetric. Retrobulbar fat is normal. No enhancing mass in the brain. IMPRESSION: No CTA evidence of an acute vascular abnormality. Electronically signed by Janeen Teague 11-27-2024 7:33 PM Neck CTA 11/27/24 16:55 EXAM: CT angio neck with con CLINICAL HISTORY: Right facial droop, difficulty seeing TECHNIQUE: Contiguous CTA axial images were obtained through the neck with the administration of intravenous contrast. Sagittal and coronal reformations are supplied. MIPS are supplied. COMPARISON: None FINDINGS: A left-sided aortic arch is present. Moderate atherosclerotic disease of the arch with appropriate takeoff of the great vessels and no hemodynamically significant stenosis at their origins. Venous contamination is present. Mild calcified atherosclerotic plaque present in the carotid artery bulbs and proximal internal carotid arteries. No hemodynamically significant stenosis. The common, internal and external carotid arteries are patent. Carotid arteries enter the petrous portion of the skull base normally. No stenosis, thrombus or dissection. The vertebral arteries are bilaterally symmetric and patent throughout their course. No pneumothorax in the upper lungs. No acute osseous abnormality. IMPRESSION: No CT evidence of an acute vascular abnormality in the neck. Electronically signed by Janeen Teague 11-27-2024 7:38 PM Chest X-Ray 11/27/24 16:56 HISTORY: Stroke alert. TECHNIQUE: Portable AP radiograph of the chest. COMPARISON: Chest radiograph dated 01/13/2016. FINDINGS: Cardiomegaly. Pulmonary vascular congestion. Diffuse hazy opacity throughout both lungs. Superimposed left lower lung/retrocardiac opacity. No pneumothorax or effusion. Postsurgical changes of the heart and mediastinum. Degenerative changes of the shoulders and spine. Included upper abdomen is unremarkable. IMPRESSION: * Cardiomegaly with pulmonary vascular congestion suggesting CHF. Diffuse hazy opacity throughout the lungs may represent superimposed pulmonary edema versus chronic interstitial lung disease or atypical pneumonia. * Superimposed left lower lung/retrocardiac opacity favored to represent artifact from underpenetration and atelectasis. Pneumonia is not excluded. Electronically signed by Lorenzo Sewell 11-27-2024 7:[address] 11/27/24 16:56 EXAMINATION: Head CT without CLINICAL HISTORY: Right facial droop, difficulty seeing out of right eye, started this morning. PRIORS: 01/08/2016 TECHNIQUE: Contiguous axial images were obtained through the head without the use of intravenous contrast. Sagittal and coronal reformations are supplied. FINDINGS: Significant motion artifact degrades image quality. Mild parenchymal volume loss noted. Maldonado-white differentiation is preserved. No edema or midline shift. No intra-axial or extra-axial hemorrhage. Ventricles are normal in size and configuration. Brainstem and cerebellum have a normal appearance. Calvarium unremarkable. Paranasal sinuses and mastoid air cells are well-pneumatized. Globes are intact. No retrobulbar abnormality. Moderate osseous demineralization noted. IMPRESSION: No CT evidence of an acute intracranial abnormality. Electronically signed by Janeen Teague 11-27-2024 7:33 PM Brain MRI 11/28/24 00:07 EXAM: MR brain wo con CLINICAL HISTORY: stroke like symptoms TECHNIQUE: Multisequential and multiplanar images of the brain were submitted for review without contrast. COMPARISON: None. FINDINGS: Generalized parenchymal atrophy is appreciated. Scattered foci of increased T2/FLAIR signal abnormality are identified within the bilateral periventricular and subcortical white matter, and are most commonly associated with chronic small vessel ischemic disease. No focal parenchymal lesions are seen. No intracranial hemorrhage, mass effect, midline shift, extra-axial collection, or hydrocephalus is identified. Ventricles, sulci, and basal cisterns are symmetric and normal in size and configuration. Diffusion-weighted sequences show no evidence of acute ischemic infarction. Midline structures including the pituitary gland, corpus callosum, pineal region, and brainstem are unremarkable. The craniovertebral junction is within normal limits. No calvarial abnormalities are identified. The paranasal sinuses and mastoid air cells are clear. Orbital structures are unremarkable. Appropriate flow voids are present in the visualized intracranial vessels. IMPRESSION: 1. No acute ischemia, space occupying mass, or other acute intracranial pathology is demonstrated. 2. Chronic small vessel ischemic disease. 3. Diffuse cerebral atrophy. Electronically signed by Phill Earl 11-28-2024 01:26 AM Medications Administered Home Medications Medication Instructions Recorded Confirmed Last Taken omeprazole 20 mg capsule,delayed 20 mg PO UD #0 caps 04/14/12 11/28/24 Unknown release cetirizine 10 mg tablet 10 mg PO UD #0 tabs 01/08/16 11/28/24 Unknown Aspirin (Aspirin Low Strength) 81 mg PO QAM 10 days ##10 01/14/16 11/28/24 Unknown allopurinol 100 mg tablet 200 mg PO DAILY 11/28/24 11/28/24 Unknown bumetanide 1 mg tablet 1 - 2 mg PO UD 11/28/24 11/28/24 Unknown empagliflozin 25 mg tablet 25 mg PO DAILY 11/28/24 11/28/24 Unknown (Jardiance) glipizide 10 mg tablet 10 mg PO BID 11/28/24 11/28/24 Unknown riociguat 2.5 mg tablet (Adempas) 2.5 mg PO DAILY 11/28/24 11/28/24 Unknown rosuvastatin 20 mg tablet 20 mg PO DAILY 11/28/24 11/28/24 Unknown semaglutide 0.25 mg or 0.5 mg (2 0.25 - 0.5 mg subcut DIRECTED 11/28/24 11/28/24 Unknown mg/3 mL) subcutaneous pen injector (Ozempic) spironolactone 25 mg tablet 25 mg PO DAILY 11/28/24 11/28/24 Unknown warfarin 1 mg tablet 1 - 2 mg PO UD 11/28/24 11/28/24 Unknown Active Medications Generic Name Dose Route Start Last Admin Trade Name Lukasq PRN Reason Stop Dose Admin Allopurinol 200 mg 11/28/24 09:00 11/28/24 08:27 Allopurinol 100 Mg Tab PO 12/28/24 08:59 200 mg DAILY JENIFFER Administration Aspirin 81 mg 11/28/24 09:00 11/28/24 08:28 Aspirin 81 Mg Ectab PO 12/28/24 08:59 81 mg QAM JENIFFER Administration Bumetanide 2 mg 11/28/24 09:00 11/28/24 08:28 Bumetanide 1 Mg Tab PO 12/28/24 08:59 2 mg QAM JENIFFER Administration Escitalopram Oxalate 10 mg 11/28/24 09:00 11/28/24 08:28 Escitalopram Oxalate 10 Mg Tab PO 12/28/24 08:59 10 mg QAM JENIFFER Administration Insulin Aspart 0 units 11/28/24 07:30 11/28/24 08:26 Insulin Aspart Per Unit Charge SC 12/28/24 07:29 6 units ACHS JENIFFER Administration Miscellaneous 1 each 11/28/24 02:00 11/28/24 01:48 Adempas 2 Mg - Order Awaiting Action N/A 12/28/24 01:59 Not Given QS JENIFFER Pantoprazole Sodium 40 mg 11/28/24 09:00 11/28/24 08:28 Pantoprazole 40 Mg Tab PO 12/28/24 08:59 40 mg DAILY JENIFFER Administration Rosuvastatin Calcium 20 mg 11/28/24 09:00 11/28/24 08:27 Rosuvastatin Calcium 20 Mg Tab PO 12/28/24 08:59 20 mg DAILY JENIFFER Administration Spironolactone 25 mg 11/28/24 09:00 11/28/24 08:27 Spironolactone 25 Mg Tab PO 12/28/24 08:59 25 mg QAM JENIFFER Administration
--- NOTE | 2024-11-28 11:27 | Discharge Summary ---
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 Initial evaluation in the emergency room was negative for acute stroke. Patient was admitted to the hospital for further monitoring. Patient underwent MRI of the brain which did not show any ischemia. Neurology consultation was obtained. 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 She just recently had a fairly extensive upper respiratory infection/sinusitis and started with the symptoms shortly after. This is a history very consistent with Giron's palsy. She was started on short course of prednisone. Given instructions to keep her right eye well-lubricated and prevent it from drying out. Instructed to wear an eye patch overnight. Also explained to her that this will take potentially a few weeks to completely resolve. Rest of her laboratory studies were stable. Her INR was therapeutic. There is no arrhythmias on telemetry monitoring. She be discharged home to follow-up with her outpatient PCP. 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 Continue to follow to ensure recovery Medication Changes From Visit Short course of prednisone Lacri-Lube and artificial tears for prevention of severe dry eye Admission HPI Per Admitting Provider Gabbi Castaneda is an 79-year-old female with a previous medical history significant for type 2 diabetes mellitus prior pulmonary embolism, paroxysmal atrial fibrillation on chronic warfarin anticoagulation, GERD, adjustment disorder with depressed mood, hypertension, restrictive lung disease, pulmonary hypertension, hyperlipidemia and stage III CKD. She presents to the ED this evening with her spouse with slurred speech, facial droop and right eye pain. She reports that 3 days ago she woke up from sleep and had some significant tearing in her right eye. Throughout the day she states that she developed some numbness and tingling in the right side of her face. She denies any numbness or tingling or weakness in her extremities. She denies chest pain, shortness of breath, fever, chills or headache currently. She denies any recent falls or head injury. She states that she continues to have significant tearing and what feels like swelling of her right periorbital region and states that her right eye is very blurry. Her spouse reports that today she started having significant slurred speech and he noticed that the right side of her face seemed to be drooping. Patient wears 2 L nasal cannula at baseline for restrictive lung disease and pulmonary hypertension. In the ED CTA of the neck and head are negative for significant vascular occlusion. CT scan of the head shows no acute abnormalities. Patient is outside the window for TNK. Gabbi states she felt as though she had a sinus infection several weeks ago. She did finish her course of amoxicillin. She has no sinus pressure or purulent nasal discharge. at bedside also updated on diagnosis and treatment plan. In agreement with plan for discharge home Admission Exam Per Admitting Provider See H&P Discharge Exam Constitutional: Alert HEENT: Mucous membranes moist. Lungs: Clear to auscultation, decreased, no wheezes rales or rhonchi CV: S1-S2, regular Abdomen: Soft, nontender, nondistended Extremities: No significant edema Neuro: Full right facial droop, unable to close right eye completely, speech is clear Psych: Cooperative, normal mood Updated Medication List Medication Instructions Recorded Confirmed Type omeprazole 20 mg capsule,delayed 20 mg PO UD #0 caps 04/14/12 11/28/24 History release cetirizine 10 mg tablet 10 mg PO UD #0 tabs 01/08/16 11/28/24 History Aspirin (Aspirin Low Strength) 81 mg PO QAM 10 days ##10 01/14/16 11/28/24 Rx allopurinol 100 mg tablet 200 mg PO DAILY 11/28/24 11/28/24 History artificial 1 drp ophthalmic (eye) Q3H PRN dry 11/28/24 Rx tears([id number]) eyes #15 mL 0.1 %-0.3 %-0.2 % eye drops bumetanide 1 mg tablet 1 - 2 mg PO UD 11/28/24 11/28/24 History empagliflozin 25 mg tablet 25 mg PO DAILY 11/28/24 11/28/24 History (Jardiance) glipizide 10 mg tablet 10 mg PO BID 11/28/24 11/28/24 History prednisone 20 mg tablet 20 mg PO DAILY 5 days #5 tabs 06/18/25 Rx riociguat 2.5 mg tablet (Adempas) 2.5 mg PO DAILY 11/28/24 11/28/24 History rosuvastatin 20 mg tablet 20 mg PO DAILY 11/28/24 11/28/24 History semaglutide 0.25 mg or 0.5 mg (2 0.25 - 0.5 mg subcut DIRECTED 11/28/24 11/28/24 History mg/3 mL) subcutaneous pen injector (Ozempic) spironolactone 25 mg tablet 25 mg PO DAILY 11/28/24 11/28/24 History warfarin 1 mg tablet 1 - 2 mg PO UD 11/28/24 11/28/24 History white petrolatum-mineral oil 56.8 1 applic ophthalmic (eye) HS #3.5 11/28/24 Rx %-42.5 % eye ointment (Refresh grams Lacri-Lube) Hospital Stay Data Consultations 11/27/24 20:45 ED Decision to Admit Stat 11/28/24 01:16 Consult Neurology Routine Diagnostic Imagining Performed 11/27/24 16:55 CTA head w con [CT angio head w con] Stat CTA neck with con [CT angio neck with con] Stat 11/27/24 16:56 CT head/brain wo con Stat 11/28/24 00:07 MR brain wo con Stat Reviewed imaging, laboratory and diagnostic studies. Pertinent findings as below. MRI of the brain negative for acute ischemia but did show chronic vascular small vessel disease and atrophy Lyme screen negative Creatinine 1.3, baseline Electrolytes stable INR 2.2 CBC stable Pending Results Patient Have Any Pending Studies at Discharge: No Discharge Instructions Given to Patient (Per Discharging Provider) It may take a few weeks for this to completely recover. Please have patience The deluna is to protect your right eye from drying out: Use eyedrops during the day to keep it well-lubricated. Use eye ointment and eye patch overnight. With the prednisone expect your glucose/sugars to be slightly higher than usual. This will improve after you stop the prednisone. Resume your usual testing for your warfarin levels. Total Time Total Time Spent Total Time Spent (In Minutes): 35
--- NOTE | 2024-11-28 11:28 | Communication Note ---
By CMS guidelines, a determination that the admission or continued stay is not medically necessary has been made by a member of the UR committee and a physician for this hospital stay, therefore a Code 44 will be completed and the Inpatient admission will be changed to outpatient. Date of Service: November 28, 2024
--- NOTE | 2024-11-28 11:33 | Communication Note ---
Date of Service: November 28, 2024 By CMS guidelines, a determination that the admission or continued stay is not medically necessary has been made by a member of the Utilization Review committee and a physician for this hospital stay. Therefore, a Code 44 will be completed and the inpatient admission will be changed to outpatient.
[2024-11-28 11:40] VITALS: BP 145/83; PULSE 90; RESP 19; TEMP 98.1; O2SAT 94
[2024-11-28] MEDS: RIOCIGUAT 2.5 MG PO SCH (12:25)
[2024-11-28] MEDS ORDERED: WARFARIN SOD 1 MG TAB PO SCH (16:00)
--- NOTE | 2024-11-29 04:26 | Electrocardiogram Report ---
Test Reason : Blood Pressure : */* mmHG Vent. Rate : 98 BPM Atrial Rate : 98 BPM P-R Int : 170 ms QRS Dur : 150 ms QT Int : 398 ms P-R-T Axes : 38 23 -1 degrees QTcB Int : 508 ms Normal sinus rhythm Right bundle branch block T wave abnormality, consider inferolateral ischemia Abnormal ECG When compared with ECG of 09-Jan-2016 06:20, Right bundle branch block is now Present Confirmed by Good Galvan ([id number]) on 11/29/2024 4:25:22 AM Referred By: REFERRED SELF Confirmed By: Good Galvan
[2024-12-01 16:02] LABS: Babesia microti DNA Not Detected (Not Detected)
== END 2024-11-28 12:50 | disposition home or self-care (01) | DRG 74 ==
LOC: ED 16:44 → SUATTDRO 22:11 → OBSVTOIN 22:11 → 2E 22:11 → INTOOBSV 22:11 → 2E 23:22